=== PATIENT | female | born 1990 | race African-American/Black ===

== ENCOUNTER 2019-05-25 00:48 | Observation (INO) | payer MEDICAID ==
[~2019-05-25] VITALS: Ht 152.4 cm; Wt 72.6 kg
[2019-05-25] MEDS ORDERED: ONDANSETRON HCL 4MG/2ML INJ IV STA (02:36)
[2019-05-25] MEDS ORDERED: FAMOTIDINE 20MG/2ML VIAL IV STA (02:36)
[2019-05-25] MEDS ORDERED: SODIUM CHLORIDE 0.9% 1,000 ML IV ONE ×2 (02:36→05:45)
[2019-05-25 03:18] LABS: HEMATOCRIT. 32.5 % (36.0-48.0); HEMOGLOBIN. 10.6 g/dL (12.0-16.0); MEAN CORPUSCULAR HEMOGLOBIN 26.7 pg (28.0-32.0); MEAN CORPUSCULAR VOLUME 81.4 fL (81.0-99.0); MEAN PLATELET VOLUME 9.2 fl (7.4-10.4); PLATELET 122 x1000/uL (130-400); RED BLOOD CELL COUNT 3.99 mill/uL (4.2-5.4); RED CELL DISTRIBUTION WIDTH 16.8 % (11.6-14.6)
[2019-05-25 03:22] LABS: INR 0.9; PROTHROMBIN TIME 9.8 sec (9.6-11.0)
[2019-05-25 03:24] LABS: CHLORIDE 106 mEq/L (98-107)
[2019-05-25 04:42] LABS: CLARITY URINE CLOUDY (CLEAR); COLOR URINE YELLOW (YELLOW); KETONES URINE 4+ (NEGATIVE); LEUKOCYTE ESTERASE URINE 2+ (NEGATIVE); NITRITE URINE NEGATIVE (NEGATIVE); OCCULT BLOOD URINE NEGATIVE (NEGATIVE); PROTEIN URINE 1+ (NEGATIVE); SPECIFIC GRAVITY URINE 1.022 (1.005-1.030)
[2019-05-25 06:07] LABS: ATYPICAL LYMPHOCYTES 1; NUCLEATED RED BLOOD CELLS 1 /100 WBC
[2019-05-25 06:08] LABS: PLATELET ESTIMATE SLIGHTLY DECREASED
[2019-05-25] MEDS ORDERED: CEFAZOLIN 1000MG PREMIX 50 ML IV NR (06:30)
[2019-05-25] MEDS ORDERED: PANTOPRAZOLE SODIUM 40 MG/VIAL IV SCH (09:00)
[2019-05-25] MEDS ORDERED: DEXT 5%/LACTATED RINGERS 1,000 ML IV ONE (09:00)
[2019-05-25] MEDS ORDERED: PYRIDOXINE 100 MG/ML 1ML IM ONE (09:00)
[2019-05-25 09:30] LABS: T4 FREE 1.42 ng/dL (0.76-1.46)
[2019-05-25 09:42] VITALS: BP 119/66
[2019-05-25] MEDS ORDERED: RANI-383 MT (15:15)
[2019-05-25] MEDS ORDERED: ONDA4TAB5 PO (15:16)
[2019-05-25] MEDS: ONDANSETRON HCL 4MG/2ML INJ IV PRN ×2 (17:15→21:48)
== END 2019-05-25 22:45 | disposition home or self-care (01) ==
LOC: EDSTATUS 00:48 → ER 00:48 → EDBEDREQ 07:39 → SUPCPDRO 08:10 → ENRESERV 10:41 → 8 EST A/PP 12:01 → INTOOBSV 12:01 → OBSVTOIN 12:01
PROVIDERS: ADMIT Obstetrics & Gynecology; ATTEND Obstetrics & Gynecology
DX: O21.1 Hyperemesis gravidarum with metabolic disturbance (principal); O23.43 Unspecified infection of urinary tract in pregnancy, third trimester; O26.893 Other specified pregnancy related conditions, third trimester; R05 Cough; Z3A.36 36 weeks gestation of pregnancy
CPT/HCPCS: 36415; 76805; 76818; 80053; 81003; 83690; 84439; 84443; 84481; 85025; 85610; 87070; 87086; 87430; 87804; 96361; 96365; 96375; 96376; 99284; C9113; G0378; J0690; J2405; J3415; J3490; J7030; 96360; 99281; 99285